=== PATIENT | female | born 1985 | race African-American/Black ===

== ENCOUNTER 2018-10-17 18:47 | Emergency (ER) | payer SELFPAY ==
[~2018-10-17] VITALS: Ht 167.6 cm; Wt 79.0 kg
[2018-10-17] MEDS ORDERED: ONDANSETRON HCL 4MG/2ML INJ IV STA (19:08)
[2018-10-17] MEDS ORDERED: MORPHINE SULFATE 4 MG/ML CPJ (NOT FOR IM USE) IV STA (19:08)
[2018-10-17] MEDS ORDERED: HYDRALAZINE 20MG/ML VIAL IV ONE (19:15)
[2018-10-17 19:35] LABS: BASOPHILS % 0.9 % (0.0-2.0); EOSINOPHILS % 2.2 % (0.0-5.0); HEMATOCRIT. 35.9 % (36.0-48.0); HEMOGLOBIN. 12.3 g/dL (12.0-16.0); LYMPHOCYTES % 25.7 % (20.0-50.0); MEAN CORPUSCULAR HEMOGLOBIN 30.9 pg (28.0-32.0); MEAN CORPUSCULAR VOLUME 89.9 fL (81.0-99.0); MEAN PLATELET VOLUME 8.3 fl (7.4-10.4); NEUTROPHILS % 63.2 % (40.0-76.0); PLATELET 226 x1000/uL (130-400); RED CELL DISTRIBUTION WIDTH 13.7 % (11.6-14.6)
[2018-10-17 19:41] LABS: CHLORIDE 108 mEq/L (98-107)
[2018-10-17] MEDS ORDERED: CEFTRIAXONE 1 G PREMIX 50 ML IV ONE (19:45)
[2018-10-17] MEDS ORDERED: AZITHROMYCIN 500 MG TABLET PO ONE (19:45)
[2018-10-17] MEDS ORDERED: METRONIDAZOLE 500MG TABLET PO ONE (19:45)
[2018-10-17 20:17] LABS: CLARITY URINE CLEAR (CLEAR); COLOR URINE YELLOW (YELLOW); KETONES URINE NEGATIVE (NEGATIVE); LEUKOCYTE ESTERASE URINE NEGATIVE (NEGATIVE); NITRITE URINE NEGATIVE (NEGATIVE); OCCULT BLOOD URINE NEGATIVE (NEGATIVE); PROTEIN URINE 2+ (NEGATIVE); SPECIFIC GRAVITY URINE 1.014 (1.005-1.030); UROBILINOGEN URINE 0.2 E.U./dL (0.2-1.0)
[2018-10-17] MEDS ORDERED: AMLODIPINE 10MG TABLET PO ONE (20:45)
[2018-10-17] MEDS ORDERED: ACETAMINOPHEN WITH CODEINE 300/30MG TABLET PO ONE (21:30)
[2018-10-18] MEDS ORDERED: ACETAMINOPHEN 325MG TABLET PO ONE (04:30)
[2018-10-18] MEDS ORDERED: TRAMADOL 50MG TABLET PO ONE (09:30)
[2018-10-18] MEDS ORDERED: ENALAPRIL 2.5MG/2ML VIAL 2ML IV ONE (12:00)
[2018-10-18] MEDS ORDERED: CARVEDILOL 12.5MG TABLET PO ONE (12:15)
[2018-10-18] MEDS ORDERED: AMLODIPINE 10MG TABLET PO ONE (12:15)
[2018-10-18] MEDS ORDERED: HYDRALAZINE HCL 50MG TABLET PO ONE (12:15)
[2018-10-18] MEDS ORDERED: ENALAPRIL 1.25MG/ML VIAL 1ML IV SCH (12:20)
[2018-10-18 12:30] VITALS: BP 158/98
== END 2018-10-18 12:43 | disposition home or self-care (01) ==
LOC: ER 18:47 → CANBEDREQ 10-18 01:56 → ER 10-18 12:43
DX: I12.9 Hypertensive chronic kidney disease with stage 1 through stage 4 chronic kidney disease, or unspecified chronic kidney disease (principal); N18.9 Chronic kidney disease, unspecified; R51 Headache; M54.5 Low back pain; Z88.8 Allergy status to other drugs, medicaments and biological substances
CPT/HCPCS: 36415; 70450; 71045; 72131; 80053; 81003; 81025; 84484; 85025; 85610; 93005; 93970; 96365; 96375; 99284; J0360; J0696; J2270; J2405; J3490

== ENCOUNTER 2019-04-26 00:12 | Inpatient (IN) | payer MEDICAID ==
[~2019-04-26] VITALS: Ht 170.2 cm; Wt 87.5 kg
[2019-04-26] MEDS ORDERED: MORPHINE SULFATE 4 MG/ML CPJ (NOT FOR IM USE) IV STA (00:46)
[2019-04-26] MEDS ORDERED: ONDANSETRON HCL 4MG/2ML INJ IV STA (00:46)
[2019-04-26] MEDS ORDERED: CLONIDINE 0.2MG TABLET PO ONE (01:00)
[2019-04-26 01:08] LABS: BASOPHILS % 0.4 % (0.0-2.0); EOSINOPHILS % 2.1 % (0.0-5.0); HEMATOCRIT. 40.4 % (36.0-48.0); HEMOGLOBIN. 14.2 g/dL (12.0-16.0); LYMPHOCYTES % 17.1 % (20.0-50.0); MEAN CORPUSCULAR HEMOGLOBIN 32.3 pg (28.0-32.0); MEAN CORPUSCULAR VOLUME 92.2 fL (81.0-99.0); NEUTROPHILS % 74.4 % (40.0-76.0); PLATELET 187 x1000/uL (130-400); RED BLOOD CELL COUNT 4.38 mill/uL (4.2-5.4); RED CELL DISTRIBUTION WIDTH 13.8 % (11.6-14.6)
[2019-04-26 01:11] LABS: INR 0.9; PROTHROMBIN TIME 9.9 sec (9.6-11.0)
[2019-04-26 01:12] LABS: CHLORIDE 108 mEq/L (98-107)
[2019-04-26 01:19] LABS: HCG SCREEN NEGATIVE
[2019-04-26 01:54] LABS: CLARITY URINE CLEAR (CLEAR); COLOR URINE YELLOW (YELLOW); KETONES URINE NEGATIVE (NEGATIVE); LEUKOCYTE ESTERASE URINE NEGATIVE (NEGATIVE); NITRITE URINE NEGATIVE (NEGATIVE); OCCULT BLOOD URINE NEGATIVE (NEGATIVE); PROTEIN URINE 2+ (NEGATIVE); SPECIFIC GRAVITY URINE 1.013 (1.005-1.030); UROBILINOGEN URINE 0.2 E.U./dL (0.2-1.0)
[2019-04-26] MEDS ORDERED: HYDRALAZINE 20MG/ML VIAL IV ONE (02:45)
[2019-04-26] MEDS ORDERED: KETOROLAC 30MG/ML VIAL IV ONE (06:15)
[2019-04-26] MEDS ORDERED: DOCUSATE SODIUM 100MG CAPSULE PO PRN (07:00)
[2019-04-26] MEDS ORDERED: IPRATROPIUM/ALBUTEROL 0.5-3(2.5)MG/3ML NEB HHN PRN (07:00)
[2019-04-26] MEDS ORDERED: DIPHENHYDRAMINE 50MG/ML VIAL IV PRN (07:00)
[2019-04-26] MEDS ORDERED: ONDANSETRON HCL 4MG/2ML INJ IV PRN (07:00)
[2019-04-26] MEDS ORDERED: MAGNESIUM/ALUMINUM HYDROXIDE/SIMETHICONE 30ML UDC PO PRN (07:00)
[2019-04-26] MEDS ORDERED: ACETAMINOPHEN 325MG TABLET PO PRN (07:00)
[2019-04-26] MEDS ORDERED: HYDRALAZINE 20MG/ML VIAL IV PRN (07:00)
[2019-04-26] MEDS ORDERED: CLONIDINE 0.1MG TABLET PO PRN (07:00)
[2019-04-26] MEDS ORDERED: LORAZEPAM 2MG/ML CPJ IV PRN (07:00)
[2019-04-26] MEDS ORDERED: GUAIFENESIN 200MG/10ML SUGAR FREE UDC PO PRN (07:00)
[2019-04-26 08:40] VITALS: BP 135/66
[2019-04-26 10:01] VITALS: BP 118/87
[2019-04-26] MEDS: HYDROCODONE/ACETAMINOPHEN 10/325MG TABLET PO PRN ×2 (10:35→20:47)
[2019-04-26] MEDS: ENOXAPARIN 30MG/0.3ML SYR SUBCUT SCH (10:40)
[2019-04-26] MEDS ORDERED: LISI-604 MT (11:04)
[2019-04-26 12:00] VITALS: BP 113/61
[2019-04-26] MEDS: AMLODIPINE 5MG TABLET PO SCH (13:21)
[2019-04-26] MEDS: SODIUM CHLORIDE 0.9% INJ 3ML FLUSH IVF SCH (13:21)
[2019-04-26] MEDS: MORPHINE SULFATE 2 MG/ML CPJ (NOT FOR IM USE) IV PRN ×2 (14:17→22:58)
[2019-04-26 16:00] VITALS: BP 131/58
[2019-04-26 17:05] LABS: PHOSPHORUS 4.5 mg/dL (2.5-4.9)
[2019-04-26 17:06] LABS: LDL CHOLESTEROL 65 mg/dL (5-100)
[2019-04-26 17:08] LABS: CREATINE KINASE 167 IU/L (26-192); HDL CHOLESTEROL 87 mg/dL (40-59)
[2019-04-26 17:09] LABS: T4 FREE 1.16 ng/dL (0.76-1.46)
[2019-04-26 17:11] LABS: CREATINE KINASE MB FRACTION 1.1 ng/mL (0.5-3.6)
[2019-04-26 17:11] LABS: SODIUM URINE RANDOM 52 mEq/L
[2019-04-26 17:18] LABS: *AMPHETAMINES SCREEN URINE NEGATIVE (NEGATIVE); *BARBITURATES SCREEN URINE NEGATIVE (NEGATIVE); *BENZODIAZEPINES SCREEN URINE NEGATIVE (NEGATIVE); *COCAINE SCREEN URINE NEGATIVE (NEGATIVE)
[2019-04-26 17:19] LABS: CANNABINOID URINE SCREEN NEGATIVE (NEGATIVE); METHADONE URINE SCREEN NEGATIVE (NEGATIVE); PHENCYCLIDINE URINE SCREEN NEGATIVE (NEGATIVE)
[2019-04-26 17:20] LABS: OPIATES URINE SCREEN PRESUMTIVE POSITIVE (NEGATIVE)
[2019-04-26 20:00] VITALS: BP 131/65
[2019-04-26 23:51] LABS: CREATINE KINASE 168 IU/L (26-192)
[2019-04-26 23:52] LABS: CREATINE KINASE MB FRACTION 1.4 ng/mL (0.5-3.6)
[2019-04-27] VITALS: BP 131/70
[2019-04-27 04:00] VITALS: BP 129/64
[2019-04-27 07:19] LABS: BASOPHILS % 0.4 % (0.0-2.0); EOSINOPHILS % 2.7 % (0.0-5.0); HEMATOCRIT. 36.9 % (36.0-48.0); HEMOGLOBIN. 12.8 g/dL (12.0-16.0); LYMPHOCYTES % 26.7 % (20.0-50.0); MEAN CORPUSCULAR HEMOGLOBIN 32.2 pg (28.0-32.0); MEAN CORPUSCULAR VOLUME 92.7 fL (81.0-99.0); MEAN PLATELET VOLUME 9.5 fl (7.4-10.4); MONOCYTES % 6.8 % (2.0-8.0); NEUTROPHILS % 63.4 % (40.0-76.0); PLATELET 170 x1000/uL (130-400); RED BLOOD CELL COUNT 3.99 mill/uL (4.2-5.4); RED CELL DISTRIBUTION WIDTH 13.9 % (11.6-14.6)
[2019-04-27 08:00] VITALS: BP 146/78
[2019-04-27 08:10] LABS: CHLORIDE 105 mEq/L (98-107)
[2019-04-27] MEDS: AMLODIPINE 5MG TABLET PO SCH (08:55)
[2019-04-27] MEDS: ENOXAPARIN 30MG/0.3ML SYR SUBCUT SCH (08:56)
[2019-04-27] MEDS: MORPHINE SULFATE 2 MG/ML CPJ (NOT FOR IM USE) IV PRN ×2 (08:56→15:37)
[2019-04-27] MEDS ORDERED: LISINOPRIL 20MG TABLET PO SCH (09:00)
[2019-04-27 12:00] VITALS: BP 134/76
[2019-04-27 13:02] LABS: CREATINE KINASE 138 IU/L (26-192)
[2019-04-27] MEDS: SODIUM CHLORIDE 0.9% INJ 3ML FLUSH IVF SCH (14:00)
[2019-04-27] MEDS: NICOTINE 14MG PATCH TD SCH (15:13)
[2019-04-27] MEDS: METRONIDAZOLE 500MG TABLET PO SCH (15:13)
[2019-04-27] MEDS: SODIUM CHLORIDE 0.45% 1,000 ML IV SCH (15:14)
[2019-04-27 16:00] VITALS: BP 143/84
[2019-04-27 20:00] VITALS: BP 130/77
[2019-04-28] VITALS (8 sets, daily range): BP systolic 138–163; BP diastolic 76–95
[2019-04-28] MEDS: METRONIDAZOLE 500MG TABLET PO SCH ×3 (00:18→23:04)
[2019-04-28] MEDS: MORPHINE SULFATE 2 MG/ML CPJ (NOT FOR IM USE) IV PRN ×5 (00:19→18:27)
[2019-04-28] MEDS: SODIUM CHLORIDE 0.9% INJ 3ML FLUSH IVF SCH ×4 (00:51→23:04)
[2019-04-28] MEDS: SODIUM CHLORIDE 0.45% 1,000 ML IV SCH ×2 (02:19→18:26)
[2019-04-28] MEDS: AMLODIPINE 5MG TABLET PO SCH (08:50)
[2019-04-28] MEDS: ENOXAPARIN 30MG/0.3ML SYR SUBCUT SCH (08:50)
[2019-04-28] MEDS: NICOTINE 14MG PATCH TD SCH (08:51)
[2019-04-28 09:26] LABS: BASOPHILS % 0.7 % (0.0-2.0); EOSINOPHILS % 6.2 % (0.0-5.0); HEMOGLOBIN. 12.7 g/dL (12.0-16.0); MEAN CORPUSCULAR HEMOGLOBIN 32.2 pg (28.0-32.0); MEAN CORPUSCULAR VOLUME 91.6 fL (81.0-99.0); MEAN PLATELET VOLUME 9.1 fl (7.4-10.4); MONOCYTES % 5.3 % (2.0-8.0); NEUTROPHILS % 63.8 % (40.0-76.0); PLATELET 178 x1000/uL (130-400); RED BLOOD CELL COUNT 3.93 mill/uL (4.2-5.4); RED CELL DISTRIBUTION WIDTH 13.9 % (11.6-14.6)
[2019-04-29] VITALS: BP 148/96
[2019-04-29] MEDS: MORPHINE SULFATE 2 MG/ML CPJ (NOT FOR IM USE) IV PRN ×2 (00:43→06:58)
[2019-04-29 04:00] VITALS: BP 140/87
[2019-04-29] MEDS: SODIUM CHLORIDE 0.9% INJ 3ML FLUSH IVF SCH (05:33)
[2019-04-29 06:58] VITALS: BP 157/89
[2019-04-29 07:39] LABS: BASOPHILS % 0.5 % (0.0-2.0); HEMATOCRIT. 34.1 % (36.0-48.0); HEMOGLOBIN. 11.7 g/dL (12.0-16.0); LYMPHOCYTES % 28.3 % (20.0-50.0); MEAN CORPUSCULAR HEMOGLOBIN 31.7 pg (28.0-32.0); MEAN CORPUSCULAR VOLUME 92.4 fL (81.0-99.0); MEAN PLATELET VOLUME 9.6 fl (7.4-10.4); MONOCYTES % 8.1 % (2.0-8.0); NEUTROPHILS % 58.1 % (40.0-76.0); PLATELET 171 x1000/uL (130-400); RED BLOOD CELL COUNT 3.69 mill/uL (4.2-5.4); RED CELL DISTRIBUTION WIDTH 13.9 % (11.6-14.6)
[2019-04-29 08:00] VITALS: BP 151/84
[2019-04-29] MEDS: METRONIDAZOLE 500MG TABLET PO SCH (10:04)
[2019-04-29] MEDS: ENOXAPARIN 30MG/0.3ML SYR SUBCUT SCH (10:04)
[2019-04-29] MEDS: NICOTINE 14MG PATCH TD SCH (10:09)
[2019-04-29] MEDS: AMLODIPINE 5MG TABLET PO SCH (10:09)
[2019-04-29] MEDS: SODIUM CHLORIDE 0.45% 1,000 ML IV SCH (11:00)
[2019-04-29 14:14] VITALS: BP 151/84
[2019-04-29 19:06] LABS: ANTI-NUCLEAR ANTIBODIES DIRECT Negative (Negative)
== END 2019-04-29 14:40 | disposition home or self-care (01) | DRG 199 ==
LOC: ER 00:12 → 5WST 03:57 → EDBEDREQTM 04:01 → EDBEDREQ 04:01 → ENRESERV 07:36
PROVIDERS: ADMIT Internal Medicine; ATTEND Internal Medicine
DX: I16.1 Hypertensive emergency (principal); N17.0 Acute kidney failure with tubular necrosis; F17.210 Nicotine dependence, cigarettes, uncomplicated; N18.9 Chronic kidney disease, unspecified; G43.909 Migraine, unspecified, not intractable, without status migrainosus; I12.9 Hypertensive chronic kidney disease with stage 1 through stage 4 chronic kidney disease, or unspecified chronic kidney disease; N76.0 Acute vaginitis; Z98.891 History of uterine scar from previous surgery; Z82.49 Family history of ischemic heart disease and other diseases of the circulatory system; Z88.8 Allergy status to other drugs, medicaments and biological substances
CPT/HCPCS: 36415; 71045; 76770; 80048; 80053; 80061; 80305; 81003; 82550; 82553; 82570; 83036; 83880; 84100; 84300; 84439; 84443; 84484; 84703; 85025; 85379; 86038; 86160; 93005; 93306; 93970; 96374; 99285; J0360; J1650; J1885; J2270; J2405